=== PATIENT | female | born 2000 | race African-American/Black ===

== ENCOUNTER 2021-11-01 00:17 | Inpatient (IN) ==
[2021-11-01] MEDS ORDERED: ONDANSETRON 4 MG/2 ML VIAL IV PRN (00:42)
[2021-11-01 01:23] LABS: Basophils % 0.2 % (0.0-0.8); Eosinophils # 0.1 10*3/uL (0.0-0.87); Eosinophils % 1.4 % (0.00-10.9); Hemoglobin 12.9 GM/DL (12.0-16.0); Immature Granulocytes % 0.6 %; Immature Granulocytes Absolute 0.05 #; Lymphocytes # 2.1 10*3/uL (1.4-4.0); Lymphocytes % 24.9 % (21.3-54.2); Mean Corpuscular HGB Conc 30.7 GM/DL (32-36); Mean Corpuscular Volume 83.3 FL (87-102); Mean Platelet Volume 11.4 FL (9.6-12.0); Monocytes % 10.3 % (1.7-12.7); Neutrophils % 62.6 % (38.7-73.9); Platelet Count 127 T/CUMM (130-400); Red Blood Count 5.04 MC/CUMM (3.8-5.5); Red Cell Distribution Width 18.8 % (9.3-17.3); White Blood Count 8.5 T/CUMM (4-12)
[2021-11-01] MEDS: LACTATED RINGERS 1,000 ML IV SCH ×2 (01:41→11:07)
[2021-11-01] MEDS: OXYTOCIN/LR 20 UNIT/1,000 ML BAG IV SCH ×2 (01:41→20:45)
[2021-11-01 01:49] LABS: Hypochromia 2+; Platelet Estimate Normal
[2021-11-01 01:53] LABS: Albumin 2.8 G/DL (3.4-5.0); Bilirubin,Total 0.7 MG/DL (0.20-1.00); Osmolality,Calculated 269.8 MOS/KG (273-304); Potassium 3.7 MMOL/L (3.5-5.1); Total Protein 7.2 G/DL (6.4-8.2)
[2021-11-01] MEDS ORDERED: LACTATED RINGERS 1,000 ML IV ONE (07:41)
[2021-11-01] MEDS ORDERED: FAMOTIDINE 20 MG/2 ML VIAL IV ONE (07:41)
[2021-11-01] MEDS ORDERED: CITRIC ACID/SODIUM CITRATE 30 ML UDCUP PO ONE (07:41)
[2021-11-01] MEDS ORDERED: ePHEDrine 50 MG/ML VIAL IV PRN (07:41)
[2021-11-01] MEDS ORDERED: PROMETHAZINE 25 MG/1 ML VIAL IM ONE (07:42)
[2021-11-01] MEDS ORDERED: hydrOXYzine HCL 25 MG/1 ML VIAL IM PRN (07:42)
[2021-11-01] MEDS ORDERED: diphenhydrAMINE 50 MG/1 ML VIAL IV PRN ×2 (07:42)
[2021-11-01] MEDS ORDERED: NALOXONE 0.4 MG/ML VIAL IV PRN (07:42)
[2021-11-01] MEDS ORDERED: LACTATED RINGERS 1,000 ML IV SCH (08:00)
[2021-11-01] MEDS: fentaNYL 2 MCG/ROPIV 0.2% EPID 100 ML EPIDURAL SCH ×2 (08:38→16:02)
[2021-11-01] MEDS ORDERED: miSOPROStoL 200 MCG TABLET ONE (18:38)
[2021-11-01] MEDS ORDERED: METHYLERGONOVINE 0.2 MG/1 ML AMP ONE (18:38)
[2021-11-01] MEDS ORDERED: OXYTOCIN/LR 30 UNIT/1,000 ML BAG IV ONE (18:40)
[2021-11-01 19:34] LABS: Cord Arterial Blood HCO3 20.8 MMOL/L
[2021-11-01 19:36] LABS: Cord Venous Blood HCO3 23.1 MMOL/L; Cord Venous Blood PO2 27.1
[2021-11-01] MEDS ORDERED: BISACODYL 10 MG SUPP RECTAL PRN (21:13)
[2021-11-01] MEDS ORDERED: ACETAMINOPHEN 325 MG TABLET PO PRN (21:13)
[2021-11-01] MEDS ORDERED: oxyCODONE/ACETAMINOPHEN 5-325 MG TABLET PO PRN (21:13)
[2021-11-01] MEDS ORDERED: MEASLES/MUMPS/RUBELLA VACCINE 0.5 ML VIAL SUBCUT ONE (21:13)
[2021-11-01] MEDS ORDERED: HYDROCORTISONE 2.5% RECTAL CREAM 30 GM TUBE TOP PRN (21:13)
[2021-11-01] MEDS ORDERED: LANOLIN 50% CREAM 0.3 OZ TUBE TOP PRN (21:13)
[2021-11-01] MEDS ORDERED: WITCH HAZEL PADS 100/JAR TOP PRN (21:13)
[2021-11-01] MEDS ORDERED: OXYTOCIN/LR 20 UNIT/1,000 ML BAG IV ONE (21:13)
[2021-11-01] MEDS ORDERED: DIPH/TET/ACEL PERT BOOSTER VACCINE 0.5 ML VIAL IM ONE (21:13)
[2021-11-01] MEDS ORDERED: BENZOCAINE 20%/MENTHOL 0.5% SPRAY 56 GM CAN TOP PRN (21:13)
[2021-11-01] MEDS ORDERED: RHO(D) IMMUNE GLOBULIN 300 MCG SYRINGE IM ONE (21:13)
[2021-11-01] MEDS: oxyCODONE/ACETAMINOPHEN 5-325 MG TABLET PO PRN (21:30)
[2021-11-01] MEDS: DOCUSATE SODIUM 100 MG CAPSULE PO SCH (23:00)
[2021-11-01] MEDS: IBUPROFEN 800 MG TABLET PO PRN (23:00)
[2021-11-02 05:58] LABS: Basophils % 0.1 % (0.0-0.8); Eosinophils # 0.1 10*3/uL (0.0-0.87); Eosinophils % 0.5 % (0.00-10.9); Hemoglobin 12.1 GM/DL (12.0-16.0); Immature Granulocytes % 0.7 %; Immature Granulocytes Absolute 0.11 #; Lymphocytes # 1.5 10*3/uL (1.4-4.0); Lymphocytes % 10.4 % (21.3-54.2); Mean Corpuscular Volume 83.7 FL (87-102); Mean Platelet Volume 11.9 FL (9.6-12.0); Monocytes % 8.9 % (1.7-12.7); Neutrophils % 79.4 % (38.7-73.9); Platelet Count 123 T/CUMM (130-400); Red Blood Count 4.66 MC/CUMM (3.8-5.5); Red Cell Distribution Width 18.2 % (9.3-17.3); White Blood Count 14.7 T/CUMM (4-12)
[2021-11-02 06:32] LABS: Anisocytosis 1+; Band Neutrophils 25 % (0-10); Lymphocytes 12 % (20-55); Platelet Estimate Adequate; Segmented Neutrophils 57 % (50-85); Total Cells Counted 100
[2021-11-02 06:33] LABS: Macrocytosis Slight
[2021-11-02] MEDS: DOCUSATE SODIUM 100 MG CAPSULE PO SCH ×3 (09:11→21:02)
[2021-11-02] MEDS: IBUPROFEN 800 MG TABLET PO PRN ×2 (09:12→20:03)
[2021-11-02] MEDS: oxyCODONE/ACETAMINOPHEN 5-325 MG TABLET PO PRN ×2 (09:13→20:03)
[2021-11-03 07:11] VITALS: BP 109/77
== END 2021-11-03 12:50 | disposition home or self-care (01) | DRG 560 ==
LOC: N.LD 00:17 → N.OB 22:30
PROVIDERS: ADMIT Obstetrics & Gynecology; ATTEND Obstetrics & Gynecology